=== PATIENT | male | born 1945 | race Caucasian/White ===

== ENCOUNTER 2017-03-02 09:17 | Day surgery (SDC) | payer OTHER ==
[~2017-03-02] VITALS: Ht 165.1 cm; Wt 68.0 kg
[~2017-03-02 09:17] MED LIST: COREG CR10 MG PO; IMDUR30 MG PO; LIPITOR80 MG PO; LO-DOSE ASPIRIN81 M1 PO; PLAVIX75 MG PO; TRICOR48 MG PO; ZESTRIL2.5 MG PO
[2017-03-02 09:55] VITALS: BP 140/68
[2017-03-02 12:45] VITALS: BP 136/68
[2017-03-02 13:20] VITALS: BP 142/74
== END 2017-03-02 13:30 | disposition home or self-care (01) ==
LOC: SDC 09:17
DX: H57.8 Other specified disorders of eye and adnexa (principal); H35.371 Puckering of macula, right eye; K21.9 Gastro-esophageal reflux disease without esophagitis; E78.5 Hyperlipidemia, unspecified; I11.0 Hypertensive heart disease with heart failure; I50.9 Heart failure, unspecified; N40.0 Benign prostatic hyperplasia without lower urinary tract symptoms; M48.061 Spinal stenosis, lumbar region without neurogenic claudication; I25.10 Atherosclerotic heart disease of native coronary artery without angina pectoris; I65.29 Occlusion and stenosis of unspecified carotid artery; I25.2 Old myocardial infarction; Z79.82 Long term (current) use of aspirin; Z79.02 Long term (current) use of antithrombotics/antiplatelets
CPT/HCPCS: J0690; J3300